=== PATIENT | female | born 1980 | race Two or more races ===

== ENCOUNTER 2018-12-14 07:14 | Inpatient (IN) ==
[2018-12-14] MEDS ORDERED: PITOCIN IVP ONE (07:17)
[2018-12-14] MEDS ORDERED: D5LR 1L W PITOCIN 10 UNITS/L 10 UNITS/1,000 ML BAG IV PRN (07:17)
[2018-12-14] MEDS ORDERED: DILAUDID INJ IVP PRN (07:17)
[2018-12-14] MEDS ORDERED: REGLAN INJ 10 MG VIAL IVP PRN (07:17)
[2018-12-14] MEDS ORDERED: NUBAIN INJ 200 MG VIAL MULTIDOSE IVP PRN (07:17)
[2018-12-14] MEDS ORDERED: D5 1/2 NS 1L W PITOCIN 20 UNITS/L 20 UNITS/1,000 ML BAG IV ONE (07:22)
[2018-12-14] MEDS ORDERED: D5 1/2 NS 1000 ML 1,000 ML IV ONE (07:22)
[2018-12-14] MEDS ORDERED: D5LR 1L W PITOCIN 10 UNITS/L 10 UNITS/1,000 ML BAG IV ONE (07:22)
[2018-12-14 07:49] LABS: BASOPHILS % (AUTO) 0.7 % (0.2-1.0); EOSINOPHILS % (AUTO) 0.5 % (0.9-2.9); HEMATOCRIT 42.5 % (36.0-47.0); LYMPHOCYTES % (AUTO) 28.7 % (21.0-51.0); MEAN CORPUSCULAR HEMOGLOBIN 28.1 pg (27.0-34.0); MEAN PLATELET VOLUME 10.7 fL (7.4-11.0); MONOCYTES # (AUTO) 0.4 x10^3/uL (0.3-0.8); MONOCYTES % (AUTO) 6.2 % (0.0-13.0); NEUTROPHILS # (AUTO) 4.6 x10^3/uL (2.2-4.8); NEUTROPHILS % (AUTO) 63.9 % (42.0-75.0); PLATELET COUNT 192 X10^3/uL (150.0-450.0); WHITE BLOOD COUNT 7.1 X10^3/uL (3.6-10.0)
[2018-12-14 07:54] LABS: BLOOD UREA NITROGEN 10 mg/dL (7-18); CALCIUM 9.3 mg/dL (8.5-10.1); CARBON DIOXIDE 21.7 mmol/L (21-32); CHLORIDE 103 mmol/L (98-107); CREATININE 0.87 mg/dL (0.55-1.02); SODIUM 135 mmol/L (136-145); eGFR NON BLACK RACES > 60 (>60)
[2018-12-14 07:57] LABS: BILIRUBIN,URINE NEGATIVE (NEGATIVE); BLOOD/HEMOGLOBIN,URINE 1+ (NEGATIVE); GLUCOSE, URINE NEGATIVE (NEGATIVE); KETONES,URINE NEGATIVE (NEGATIVE); LEUKOCYTE ESTERASE ,URINE 1+ (NEGATIVE); NITRITES,URINE NEGATIVE (NEGATIVE); PROTEIN,URINE 3+ (NEGATIVE); UROBILINOGEN,URINE NORMAL (NORMAL)
[2018-12-14] MEDS ORDERED: D5 1/2 NS 1000 ML 1,000 ML IV SCH (08:00)
[2018-12-14 08:05] LABS: APPEARANCE,URINE HAZY (CLEAR); BACTERIA,URINE TRACE /HPF (NEGATIVE); COLOR,URINE YELLOW (YELLOW); MUCUS,URINE FEW /HPF (NEGATIVE); RENAL EPITHELIAL CELLS,URINE FEW /HPF (NEGATIVE); SQUAMOUS EPITHELIAL CELL,UR MODERATE /HPF (NEGATIVE)
[2018-12-14] MEDS ORDERED: FENTANYL INJ 100 mcg ONE (09:47)
[2018-12-14] MEDS ORDERED: LR 1000 ML IV 1,000 ML IV ONE (09:47)
[2018-12-14] MEDS ORDERED: XYLOCAINE 2 % (PLAIN) ONE (09:48)
[2018-12-14] MEDS ORDERED: ADRENALINE CHL INJ ONE (09:48)
[2018-12-14] MEDS ORDERED: NAROPIN EPIDURAL 0.2% + FENTANYL 90MCG 60 ML EPI ONE (10:00)
[2018-12-14] MEDS ORDERED: XYLOCAINE 1 % (PLAIN) ONE (12:21)
[2018-12-14] MEDS ORDERED: XYLOCAINE-MPF 1% ONE (12:21)
[2018-12-14] MEDS ORDERED: PHENERGAN INJ 25 MG IV PRN (14:10)
[2018-12-14] MEDS ORDERED: MOTRIN TAB 800 MG PO PRN ×2 (14:10→20:18)
[2018-12-14] MEDS ORDERED: DERMOPLAST SPRAY TOP PRN (14:59)
[2018-12-14] MEDS ORDERED: MILK OF MAGNESIA PO PRN (14:59)
[2018-12-14] MEDS ORDERED: AMBIEN PO PRN (14:59)
[2018-12-14] MEDS ORDERED: D5 1/2 NS 1000 ML 1,000 ML with PITOCIN 20 UNITS IV SCH ×2 (15:00)
[2018-12-14] MEDS: ZANTAC PO SCH (20:19)
[2018-12-15 04:51] LABS: HEMATOCRIT 36.3 % (36.0-47.0)
[2018-12-15] MEDS: PRENATAL PLUS PO SCH (08:42)
[2018-12-15] MEDS: ZANTAC PO SCH ×2 (08:42→20:53)
[2018-12-16 08:28] VITALS: BP 120/55
[2018-12-16] MEDS: ZANTAC PO SCH (09:19)
[2018-12-16] MEDS: PRENATAL PLUS PO SCH (09:19)
[2018-12-16] MEDS ORDERED: ADACEL or BOOSTRIX TDaP VACCINE IM ONE (10:03)
== END 2018-12-16 16:15 | disposition home or self-care (01) | DRG 807 ==
LOC: LD 07:14 → MED/SURG 14:46
PROVIDERS: ADMIT Obstetrics & Gynecology Obstetrics; ATTEND Obstetrics & Gynecology Obstetrics
DX: Z23 Encounter for immunization; O09.513 Supervision of elderly primigravida, third trimester; Z37.0 Single live birth; O26.893 Other specified pregnancy related conditions, third trimester; Z3A.40 40 weeks gestation of pregnancy; O70.1 Second degree perineal laceration during delivery
CPT/HCPCS: 36415; 59409; 80048; 81001; 85014; 85018; 85025; 86592; 86850; 86900; 86901; 90715; A4216; A4222; S0197; J0171; J2590; J3010; J7120; S5010